=== PATIENT | female | born 2000 | race Caucasian/White ===

== ENCOUNTER 2018-11-29 02:10 | Emergency (ER) | payer BC ==
[~2018-11-29] VITALS: Ht 157.5 cm; Wt 91.4 kg
[2018-11-29 02:12] VITALS: Ht 157.5 cm; Wt 91.4 kg
[2018-11-29] MEDS ORDERED: OLANZAPINE (ODT) 5 MG TAB ODT STA (02:33)
[2018-11-29] MEDS ORDERED: SOD CHLORIDE 0.9% 1,000 ML IV STA (02:33)
[2018-11-29] MEDS ORDERED: SOD CHLORIDE 0.9% 100 ML ONE (03:17)
[2018-11-29] MEDS ORDERED: IOHEXOL 300MG/ML 150 ML BTL ONE (03:17)
[2018-11-29] MEDS ORDERED: LORAZEPAM 2 MG INJ IV ONE (03:30)
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
[2018-11-29 06:03] VITALS: BP 110/74; PULSE 97; RESP 22
== END 2018-11-29 11:22 | disposition home or self-care (01) ==
LOC: E/R 02:10
DX: F22 Delusional disorders (principal); F20.1 Disorganized schizophrenia
CPT/HCPCS: 36415; 70450; 71260; 74177; 80053; 80307; 84703; 85025; 96374; 99285; J2060; J7030; Q9967; Z7610

== ENCOUNTER 2018-12-09 17:30 | Emergency (ER) | payer BC ==
[~2018-12-09] VITALS: Ht 167.6 cm; Wt 95.0 kg
[2018-12-09 17:55] VITALS: Ht 167.6 cm; Wt 95.0 kg
[2018-12-09] MEDS ORDERED: FAMO-96 PO (21:28)
--- NOTE | 2018-12-09 21:28 | ERD ---
ER Documentation Chief Complaint Chief Complaint Per patient she swallowed a tooth unknown what kind or if was a filling HPI 18-year-old female presents with complaint that she might have ingested 1 of her teeth. States that she was here previously for the same complaint and they sent her to a psychiatric facility. Denies any difficulty breathing, cough, stridor, respiratory distress, nausea, vomiting, abdominal pain, diarrhea. ROS All systems reviewed and are negative except as per history of present illness. Medications Home Meds No Active Prescriptions or Reported Meds Allergies Allergies: Coded Allergies: No Known Allergy (Unverified , 11/29/18) PMhx/Soc Medical and Surgical Hx: pt denies Medical Hx, pt denies Surgical Hx History of Surgery: No Anesthesia Reaction: No Hx Neurological Disorder: No Hx Respiratory Disorders: No Hx Cardiac Disorders: No Hx Psychiatric Problems: No Hx Miscellaneous Medical Probl: No Hx Alcohol Use: No Hx Substance Use: No Hx Tobacco Use: Yes (Cigarette sticks 2/day) Smoking Status: Current every day smoker FmHx Family History: No diabetes, No coronary disease, No other Physical Exam Vitals Vital Signs Date Temp Pulse Resp B/P (MAP) Pulse Ox O2 O2 Flow FiO2 Time Delivery Rate 12/09/18 99.1 95 20 126/69 99 17:55 (88) Physical Exam Const: No acute distress Head: Atraumatic Eyes: Normal Conjunctiva ENT: Normal External Ears, Nose and Mouth. No lesions or foreign bodies noted in the mouth. Airway is patent. Neck: Full range of motion. No meningismus. Resp: Clear to auscultation bilaterally Cardio: Regular rate and rhythm, no murmurs Abd: Soft, non tender, non distended. Normal bowel sounds Skin: No petechiae or rashes Back: No midline or flank tenderness Ext: No cyanosis, or edema Neur: Awake and alert Psych: Normal Mood and affect. Procedures/MDM 18-year-old female presents with complaint that she might have ingested 1 of her teeth. States that she was here previously for the same complaint and they sent her to a psychiatric facility. Denies any difficulty breathing, cough, stridor, respiratory distress, nausea, vomiting, abdominal pain, diarrhea. Patient fear of ingesting 1 of her teeth is mostly related to underlying psychological disorder as all her teeth were noted to be intact on exam.. Patient did express that there was some discomfort in the throat area which I believe may related to GERD, therefore I gave patient 2-week trial of H2 dawson to see if the sensation goes away. Advised to return after 2 weeks if the sensation is still there. Patient discharged with strict ER precautions. Patient advised to follow up with PMD. All questions answered at discharge. Departure Diagnosis: Primary Impression: GERD (gastroesophageal reflux disease) Esophagitis presence: esophagitis presence not specified Qualified Codes: K21.9 - Gastro-esophageal reflux disease without esophagitis Condition: MICHELLE Alves Dec 09, 2018 21:28
[2018-12-09 21:40] VITALS: BP 116/76; PULSE 85; RESP 16
== END 2018-12-09 21:41 | disposition home or self-care (01) ==
LOC: FTE 17:30
DX: K21.9 Gastro-esophageal reflux disease without esophagitis (principal); F17.210 Nicotine dependence, cigarettes, uncomplicated; X58.XXXA Exposure to other specified factors, initial encounter; Y92.9 Unspecified place or not applicable
CPT/HCPCS: 99282